=== PATIENT | female | born 1945 | race Caucasian/White ===

== ENCOUNTER → 2016-09-28 | Outpatient (CLI) | payer MEDICARE, OTHER ==
[~2016-09-28] MED LIST: ASPIRIN 81M81 MG/TA2 PO; CITRACAL PLUS1 TAB; DESYREL 50MG50 MG PO; ESTROGENS0.3 MG PO; FLONASE NASAL S16 GM NS; FLORASTOR250 MG PO; GLUCOPHAGE1000 MG PO; HYZAAR 12.5 MG-1 TAB PO; JANUVIA50 MG PO; LIPITOR20 MG PO; MUCINEX 60600 MG/TA1 PO; MURO-128 5% OP3.5 GM OP; MYRBETR50MG PO; NEXIUM 40MG40 MG PO; OMEGA 31000 MG PO; OMEGA-3 FISH1000 MG PO; PLAVIX 75MG TAB75 MG PO; PRENATAL1 TA1 PO; PROBIOTIC-MAJOR PO; SINGULAIR 110 MG/TAB PO; STOOL SOFTENER100 M2 PO; TESSALON P100 MG/CAP PO; VITAMIN B121000 MC2; VITAMIN D31000 IU PO; VITAMIN D32000 I1 PO; ZYRTEC 10MG10 MG PO; [UNRECOGNIZED DRUG - OTHER]; [UNRECOGNIZED DRUG - OTHER] PO
== END ==
LOC: COL.RAD 11:05
DX: E04.2 Nontoxic multinodular goiter (principal)

== ENCOUNTER → 2016-10-28 | Outpatient (CLI) | payer MEDICARE, OTHER | LOC: MC.RAD 10-13 14:00 | DX: Z12.31 Encounter for screening mammogram for malignant neoplasm of breast (principal) ==

== ENCOUNTER → 2017-09-08 | Outpatient (CLI) | payer MEDICARE, OTHER | LOC: COL.RAD 14:04 | DX: E04.2 Nontoxic multinodular goiter (principal) ==

== ENCOUNTER → 2018-07-06 | Outpatient (CLI) | payer MEDICARE, OTHER | LOC: COL.RAD 07:43 | DX: R68.81 Early satiety (principal) | CPT/HCPCS: A9541 ==

== ENCOUNTER → 2018-08-18 | Outpatient (CLI) | payer MEDICARE, OTHER | LOC: MC.RAD 15:39 | DX: Z12.31 Encounter for screening mammogram for malignant neoplasm of breast (principal) ==

== ENCOUNTER → 2019-08-23 | Outpatient (CLI) | payer MEDICARE, OTHER | LOC: MC.RAD 13:46 | DX: Z12.31 Encounter for screening mammogram for malignant neoplasm of breast (principal) ==

== ENCOUNTER 2020-08-25 15:34 | Emergency (ER) | payer MEDICARE, OTHER ==
[~2020-08-25] VITALS: Ht 157.5 cm; Wt 63.6 kg
[2020-08-25 15:40] VITALS: TEMP 97.4
[2020-08-25 15:58] LABS: BASO # 0.1 (0.0-0.2); BASO % 0.7 % (0.0-2.0); EOS # 0.3 (0.0-0.7); EOS % 3.5 % (0-4.0); GRAN % 47.1 % (42.2-75.2); HEMATOCRIT 40.9 % (37.0-47.0); HEMOGLOBIN 13.2 g/dl (12.5-16.0); LYMPH # 3.3 (1.2-3.4); LYMPH % 38.2 % (20.0-51.0); MEAN CELL VOLUME 89 fl (80.0-100.0); MEAN CORPUSCULAR HEMOGLOBIN 29 pg (27.0-31.0); MEAN CORPUSCULAR HGB CONC 32 g/dl (33.0-37.0); MEAN PLATELET VOLUME 9.7 fl (7.4-10.4); MONO # 0.9 (0.1-0.6); MONO % 10.3 % (1.7-9.3); PLATELET COUNT 328 K/mm3 (130-400); REDCELL DISTRIBUTION WIDTH-CV 13.4 % (11.5-14.5)
[2020-08-25 16:24] LABS: ALBUMIN 4.6 gm/dL (3.5-5.0); BILIRUBIN,TOTAL 0.6 mg/dL (0.0-1.0); CALCIUM 10.4 mg/dL (8.4-10.2); CREATININE, serum 0.78 (0.52-1.25); POTASSIUM 3.3 mmol/L (3.4-5.0); TOTAL PROTEIN 7.7 gm/dL (6.4-8.2)
[2020-08-25 19:17] LABS: COLLECTION METHOD CLEAN CATCH
[2020-08-25 19:22] LABS: PH 6 (5-8); SQUAMOUS EPITHELIAL None Seen /hpf; URINE APPEARANCE Clear; URINE BACTERIA None Seen /hpf; URINE BILIRUBIN Negative (NEGATIVE); URINE BLOOD Negative (NEGATIVE); URINE COLOR Straw; URINE GLUCOSE Negative (NEGATIVE); URINE KETONE Negative (NEGATIVE); URINE LEUKOCYTE ESTERASE Negative (NEGATIVE); URINE NITRATE Negative (NEGATIVE); URINE PROTEIN(semi-quant) Negative (NEGATIVE); URINE RBC 0-2 /hpf; URINE UROBILINOGEN Negative (NEGATIVE); URINE WBC 0-2 /hpf
[2020-08-25 19:31] VITALS: BP 150/75; PULSE 71
== END 2020-08-25 19:44 | disposition home or self-care (01) ==
LOC: COL.ER 15:34
PROVIDERS: Nurse Practitioner Primary Care
DX: R68.89 Other general symptoms and signs (principal); R20.0 Anesthesia of skin; I10 Essential (primary) hypertension; Z79.899 Other long term (current) drug therapy; Z86.73 Personal history of transient ischemic attack (TIA), and cerebral infarction without residual deficits; X30.XXXA Exposure to excessive natural heat, initial encounter
CPT/HCPCS: J7030

== ENCOUNTER → 2020-09-04 | Outpatient (CLI) | payer MEDICARE, OTHER | LOC: MC.RAD 14:08 | DX: Z12.31 Encounter for screening mammogram for malignant neoplasm of breast (principal) ==

== ENCOUNTER → 2021-09-11 | Outpatient (CLI) | payer MEDICARE, OTHER | LOC: MC.RAD 15:25 | DX: Z12.31 Encounter for screening mammogram for malignant neoplasm of breast (principal) ==

== ENCOUNTER → 2022-07-08 | Outpatient (CLI) | payer MEDICARE, OTHER | LOC: COL.RAD 11:05 | DX: E04.2 Nontoxic multinodular goiter (principal) ==

== ENCOUNTER → 2023-08-05 | Outpatient (CLI) | payer MEDICARE, OTHER ==
[~2023-08-05] MED LIST changes: -CITRACAL PLUS1 TAB; +CITRACAL-D3 ER1 EACH PO; +CLARITIN 1010 MG/TAB PO; +CRESTOR20 MG PO; +GLUCOTROL XL2.5 MG PO; +GLUCOTROL XL5 MG/TAB PO; +HYZAAR 25 MG-101 TAB PO; +JANUVIA 100MG100 MG PO; +PRILOSEC 20MG20 MG PO; +VITAMIN D31000 I1 PO; -VITAMIN D31000 IU PO
== END ==
LOC: MC.RAD 08:00
DX: Z12.31 Encounter for screening mammogram for malignant neoplasm of breast (principal)

== ENCOUNTER 2023-12-23 08:32 | Observation (INO) | payer MEDICARE, OTHER ==
[~2023-12-23] VITALS: Ht 157.5 cm; Wt 65.9 kg
[~2023-12-23 08:32] MED LIST changes: +GLUCOTROL 5M5 MG/TAB PO; -GLUCOTROL XL2.5 MG PO; -GLUCOTROL XL5 MG/TAB PO
[2023-12-23] MEDS ORDERED: Morphine 4 MG/ML VIAL IV ONE ×3 (09:30→13:00)
[2023-12-23] MEDS ORDERED: NS 1,000 ML IV ONE ×2 (09:30→12:30)
[2023-12-23] MEDS ORDERED: Ondansetron 4 MG/2 ML VIAL IV ONE (09:30)
[2023-12-23 09:34] LABS: BASO # 0.1 K/mm3 (0.0-0.2); BASO % 0.4 % (0.0-2.0); EOS # 0.1 K/mm3 (0.0-0.7); EOS % 0.9 % (0.0-4.0); GRAN # 10.4 K/mm3 (1.4-6.5); HEMOGLOBIN 13.3 g/dl (12.5-16.0); LYMPH # 1.7 K/mm3 (1.2-3.4); LYMPH % 13.1 % (20.0-51.0); MEAN CELL VOLUME 88 fl (80.0-100.0); MEAN CORPUSCULAR HEMOGLOBIN 29 pg (27-31); MEAN CORPUSCULAR HGB CONC 33 g/dl (33.0-37.0); MEAN PLATELET VOLUME 10.3 fl (7.4-10.4); MONO # 0.9 K/mm3 (0.1-0.6); MONO % 7.1 % (1.7-9.3); PLATELET COUNT 286 K/mm3 (130-400); RED BLOOD COUNT 4.53 M/mm3 (4.10-5.30)
[2023-12-23 10:07] LABS: TROPONIN-I 0.215 ng/mL (0.00-0.033)
[2023-12-23 10:09] LABS: ALBUMIN 4.1 g/dL (3.4-4.8); BILIRUBIN,TOTAL 0.4 mg/dL (0.2-1.2); CREATININE, serum 1.55 mg/dL (0.57-1.11); POTASSIUM 4.2 mEq/L (3.5-4.5); TOTAL PROTEIN 7.1 g/dl (6.2-8.1)
[2023-12-23] MEDS ORDERED: Magnesium Sulfate 4% 50 ML IV ONE (12:45)
[2023-12-23 13:12] LABS: COLLECTION METHOD CLEAN CATCH
[2023-12-23 13:20] LABS: URINE APPEARANCE CLOUDY (CLEAR/HAZY); URINE BLOOD 3+ (NEGATIVE); URINE COLOR YELLOW (YELLOW); URINE GLUCOSE 3+ (NEGATIVE); URINE KETONE 1+ (NEGATIVE); URINE NITRATE NEGATIVE (NEGATIVE); URINE PROTEIN(semi-quant) 1+ (NEGATIVE); URINE UROBILINOGEN 0.2 E.U/dL (0.2-1.0)
[2023-12-23 13:46] LABS: URINE WBC >50 /hpf (0-2)
[2023-12-23] MEDS ORDERED: Acetaminophen 500 MG TAB PO PRN (14:30)
[2023-12-23] MEDS ORDERED: Ondansetron 4 MG/2 ML VIAL IV PRN (14:30)
[2023-12-23] MEDS ORDERED: LEADER NATUR1000 MCG PO (15:12)
[2023-12-23] MEDS ORDERED: NORVASC2.5 MG PO (15:13)
[2023-12-23] MEDS ORDERED: PROTONIX 40MG T40 MG PO (15:13)
[2023-12-23] MEDS ORDERED: HYZAAR 12.5 MG-1 TAB PO (15:14)
[2023-12-23] MEDS ORDERED: Heparin 5,000 UNITS/ML 1 ML VIAL SQ SCH (16:00)
[2023-12-23 16:10] VITALS: BP 134/81; PULSE 88; TEMP 98.3
[2023-12-23 16:50] VITALS: BP_SYST 134
[2023-12-23] MEDS ORDERED: Insulin Lispro (HumaLOG) SQ SCH (17:00)
--- NOTE | 2023-12-23 18:46 | NUR ---
Dr. Dietrich notified of critical troponin of 0.265, no new orders at this time.
[2023-12-23 19:47] VITALS: BP 102/59; PULSE 85; TEMP 97.7
[2023-12-23] MEDS ORDERED: Rosuvastatin 20 MG **** subs to Atorvastatin 40 MG PO SCH (21:00)
[2023-12-23] MEDS ORDERED: Atorvastatin 40 MG TAB PO SCH (21:00)
[2023-12-23] MEDS ORDERED: Montelukast 10 MG TAB PO SCH (21:00)
[2023-12-23 21:05] VITALS: BP_SYST 102
--- NOTE | 2023-12-23 22:43 | NUR ---
Patient assessed around 2104. Alert and oriented, and able to make needs known. Denies having pain and discomfort. Peripheral INT to left AC. Denies SOB and dyspnea. On oxygen at 1 L/min via NC. LS CTA. HRR. Telemetry in place BSAx4. Continues to strain urine, no stones noted at this time. Voices no questions, needs, or concerns at this time. In bed with call light within reach.
[2023-12-23 23:16] VITALS: BP 110/56; PULSE 81; TEMP 98.1
[2023-12-23 23:20] VITALS: BP_SYST 110
[2023-12-24 04:14] VITALS: BP 105/66; PULSE 77; TEMP 97.9
[2023-12-24 05:24] VITALS: BP_SYST 105
--- NOTE | 2023-12-24 06:24 | NUR ---
Patient has denied having pain and discomfort this shift. Has been NPO since midnight in case any interventions were needed to day. Voices no questions, needs, or concerns at this time. Urine has been strained this shift, no stones. In bed with call light within reach.
[2023-12-24 06:53] LABS: BASO % 0.5 % (0.0-2.0); EOS # 0.1 K/mm3 (0.0-0.7); EOS % 2.2 % (0.0-4.0); GRAN # 3.8 K/mm3 (1.4-6.5); GRAN % 63.6 % (42.2-75.2); LYMPH # 1.4 K/mm3 (1.2-3.4); LYMPH % 24.2 % (20.0-51.0); MEAN CELL VOLUME 89 fl (80.0-100.0); MEAN CORPUSCULAR HGB CONC 33 g/dl (33.0-37.0); MEAN PLATELET VOLUME 10.4 fl (7.4-10.4); MONO # 0.6 K/mm3 (0.1-0.6); MONO % 9.3 % (1.7-9.3); RED BLOOD COUNT 3.62 M/mm3 (4.10-5.30); REDCELL DISTRIBUTION WIDTH-CV 14.3 % (11.5-14.5)
[2023-12-24 07:03] LABS: HEMATOCRIT 32.1 % (37.0-47.0); HEMOGLOBIN 10.5 g/dl (12.5-16.0); MEAN CORPUSCULAR HEMOGLOBIN 29 pg (27-31); PLATELET COUNT 181 K/mm3 (130-400)
[2023-12-24 07:10] LABS: CALCIUM 8.5 mg/dL (8.4-10.2); CREATININE, serum 0.91 mg/dL (0.57-1.11); POTASSIUM 3.6 mEq/L (3.5-4.5)
--- NOTE | 2023-12-24 07:11 | NUR ---
Bedside report received from EDIN Thompson. Pt resting in bed with eyes closed and no complaints. Call light within reach.
[2023-12-24 07:43] VITALS: BP 94/57; PULSE 79; TEMP 98.2
--- NOTE | 2023-12-24 08:55 | NUR ---
link trainer maintenance worker met with pt to discuss discharge planning. She reports to live alone in [place]. She sees Dr. Valenzuela for PCP needs and obtains medications from [facility] or [facility] with no difficulties. She verified to have Medicare A/B and for Life insurance. Pt reports to be independent with ADLS and uses no DME. She states her daughter, Gladys [phone] is her NOK and DPOA-HC, which her PCP has. Pt has no further needs. Discharge Plan: home
[2023-12-24] MEDS ORDERED: Mirabegron ER 50 MG TAB PO SCH (09:00)
[2023-12-24] MEDS ORDERED: Loratadine 10 MG TAB PO SCH (09:00)
[2023-12-24] MEDS ORDERED: Clopidogrel 75 MG TAB PO SCH (09:00)
[2023-12-24] MEDS ORDERED: amLODIPine 5 MG TAB PO SCH (09:00)
--- NOTE | 2023-12-24 09:00 | NUR ---
Pt awake in bed and reports to this nurse that she believes the kidney stone was passed. Two small dark brown stones collected from urine strainer in pt bathroom and sent to micro per Dr. Dietrich. Shift assessment completed. VSS. INT to Lt AC patent with no swelling, redness, or drainage. Pt has no complaints at this time. Call light within reach.
[2023-12-24] MEDS ORDERED: Dextrose (Glucose) 15 GM (4 x 3.75 GM) Chewable TABLET PACK PO PRN (09:15)
[2023-12-24] MEDS ORDERED: Glucagon 1 MG VIAL IM PRN (09:15)
[2023-12-24] MEDS ORDERED: Dextrose 50% Water 25 GM/50 ML SYRINGE IV PRN (09:15)
[2023-12-24 09:30] VITALS: BP_SYST 110
--- NOTE | 2023-12-24 10:40 | NUR ---
Initial visit; Patient doing well. Her Grand-daughter with her and we all three had a good visit. Patient said she has no Spiritual needs but is glad [employer] came in to visit and wishe her well.
[2023-12-24 11:32] VITALS: BP 110/71; PULSE 71; TEMP 97.9
[2023-12-24 11:39] VITALS: BP_SYST 110
--- NOTE | 2023-12-24 12:45 | NUR ---
Discharge instructions provided to pt an pt verbalized understanding of discharge paperwork. INT to Lt AC discontinued with no complications. Telemetry discontinued. Pt is leaving facility with family back to home.
== END 2023-12-24 13:26 | disposition home or self-care (01) ==
LOC: COL.ER 08:32 → MEDICAL 14:15
PROVIDERS: Family Medicine; ADMIT Internal Medicine
DX: N13.2 Hydronephrosis with renal and ureteral calculous obstruction (principal); R79.89 Other specified abnormal findings of blood chemistry; N17.9 Acute kidney failure, unspecified; R94.31 Abnormal electrocardiogram [ECG] [EKG]; D72.829 Elevated white blood cell count, unspecified; E11.9 Type 2 diabetes mellitus without complications; I10 Essential (primary) hypertension; I08.1 Rheumatic disorders of both mitral and tricuspid valves; E78.5 Hyperlipidemia, unspecified; K21.9 Gastro-esophageal reflux disease without esophagitis; Z86.73 Personal history of transient ischemic attack (TIA), and cerebral infarction without residual deficits; Z79.02 Long term (current) use of antithrombotics/antiplatelets; Z79.82 Long term (current) use of aspirin; Z79.84 Long term (current) use of oral hypoglycemic drugs
CPT/HCPCS: G0378; J1644; J1815; J2270; J2405; J3475; J7030